=== PATIENT | female | born 1960 | race African-American/Black ===

== ENCOUNTER → 2021-06-08 | Day surgery (SDC) | payer MEDICARE ==
[~2021-06-08] MED LIST: Acetaminophen 500 MG TAB ONE; diphenhydrAMINE 50 MG/ML VIAL ONE
== END ==
LOC: CSHSDC 14:37
PROVIDERS: ATTEND Family Medicine
DX: U07.1 COVID-19 (principal); Z23 Encounter for immunization
CPT/HCPCS: 96365; 96374; Q0244; J1200; J3490